=== PATIENT | female | born 1995 | race Asian ===

== ENCOUNTER → 2017-06-08 | Outpatient (CLI) | payer OTHER ==
--- NOTE | 2017-06-09 07:58 | MAMMOGRAPHY REPORT ---
ULTRASOUND OF LEFT BREAST: 06/08/2017 CLINICAL HISTORY: 21-year-old woman presents with chronic pain in the superior left breast from the a xillary region towards the nipple in the 12:00 and 1:00 axes. She reports the pain has been present for 1-2 years but is becoming worse. Possible area of thickening in the left upper outer quadrant. No definite mass, skin erythema or nipple discharge. Family history of breast cancer = mother. COMPARISON: No prior exams were available for comparison. FINDINGS: On palpation, there is no discrete mass or obvious area of thickening in the 12:00 or 1:00 axes of the left breast from the nipple through axilla. Targeted ultrasound in the 11:00, 12:00, 1:0 0 and 2:00 axes demonstrates sonographically normal tissue. No suspicious solid or cystic mass is id entified. No focal skin thickening or drainable fluid collection. IMPRESSION: ACR BI-RADS CATEGORY 2: BENIGN There is no sonographic evidence of malignancy or other suspicious abnormality in the superior left b reast to explain the pain described by the patient. Therefore, clinical follow-up is recommended, as biopsy of a clinically suspicious lesion should not be precluded by negative imaging. These results and recommendations were discussed with the patient at the time of the exam. Tiffany Chun M.D. ay/:06/08/2017 13:22:41 Keypuncher: Tri PINEDA)(Pattie), [facility] letter sent: Normal 1/2 BI-RADS Code: ACR BI-RADS Category 2: Benign
== END | disposition home or self-care (01) ==
LOC: C.MAMM 12:50
PROVIDERS: ATTEND Physician Assistant Medical
DX: N64.4 Mastodynia (principal)